=== PATIENT | female | born 1985 | race Caucasian/White ===

== ENCOUNTER 2017-02-17 12:40 | Emergency (ER) | payer MEDICAID ==
[~2017-02-17] VITALS: Ht 160 cm; Wt 77.1 kg
[2017-02-17 13:35] VITALS: BP 133/100
--- NOTE | 2017-02-17 13:36 | Urgent Treatment Center Report ---
History of Present Issue Date/Time Seen by Provider 02/17/17 1320 Visit Reason Pt arrived:Walked Presenting Problem:INJURED LEFT HAND ON A DOOR 0830 TODAY Location if Accident: Onset of symptoms date/time:/ or onset unknown for:MEDICAL HX UNKNOWN Have you (or family members/close friends) recently traveled outside the [place]? N If Yes, where/when: Have you had exposure to infectious disease within the past month? N TB? Other? Specify: Patient state that she was mad and was trying to keep from punching a door and instead she open handed smacked the door. Now having pain in her palm of her hand and on her thumb pad area States that it hurts when she moves it or tries to lift something up ALLERGIES Coded Allergies: No Known Allergies (02/17/17) Home Medications Reported Medications No Known Home Medications History Medical History General CAD? No Angina: No [place]: No Hypertension? No Hyperlipidemia? No CHF? No DVT? No PE? No COPD? No Asthma? No Anemia? No GERD? No Gastric ulcers? No GI Bleed? No Hernia? No Thyroid Problems? No Hypothyroidism? No CVA? No Seizures? No Diabetes? No Renal Insuffiency? No UTI? No Stones? No BPH? No GB Disease: No Nephritic Syndrome? No Asplenia? No Hepatitis? No Sickle Cell Disease? No Arthritis? No Migraines? No Cataracts? No Glaucoma? No MRSA? No HIV? No TB? No Anxiety? No Depression? No Cancer? No Site: N More? 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 No: respiratory distress. 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 No Results/Orders Orders Procedure Date/time Status UTC STABILIZE JOINT/AREA 02/17 1330 Active HAND-LT-3 VIEWS 02/17 1252 Active XRAY/CT/US XRAY/CT/US XRAY hand XR interpretation by reviewed by me Xray Results no fracture seen Departure Departure Time of Disposition 133 Disposition DC Home or Self Care(routine) Clinical Impression Primary Impression: Hand injury Qualifiers: Encounter type: initial encounter Laterality: left Qualified Code: S69.92XA - Unspecified injury of left wrist, hand and finger(s), initial encounter Condition STABLE Referrals Bharath MCINTOSH,Rj KOVACS MD, MONI VERGARA Patient Instructions DI for Hand Pain Additional Instructions *RICE, Rest the extremity, Ice 15-20 minutes 3-4 times daily, Compress- wear the anuj wrap as discussed as much as possible to help reduce swelling and pain, Elevate the extremity when at rest *Anuj wrap is for support and help control swelling, use it except in the shower. Be sure that is not to tight but not to loose either *Elevate when resting *Ibuprofen 600-800mg every 6-8 hours as needed for pain an inflammation. If need something more can take Tylenol in between doses of Ibuprofen to help Immediately follow up for new or worsening of symptoms, or no noticeable improvement over the next 3-5 days Discharge Counseling Counseled pt/family regarding diagnosis, test results, home care, follow up needs Prescriptions Current Visit Scripts No Known Home Medications at 1330
--- NOTE | 2017-02-17 13:36 | Urgent Treatment Center Report ---
History of Present Issue Date/Time Seen by Provider 02/17/17 1320 Visit Reason Pt arrived:Walked Presenting Problem:INJURED LEFT HAND ON A DOOR 0830 TODAY Location if Accident: Onset of symptoms date/time:/ or onset unknown for:MEDICAL HX UNKNOWN Have you (or family members/close friends) recently traveled outside the [place]? N If Yes, where/when: Have you had exposure to infectious disease within the past month? N TB? Other? Specify: Patient state that she was mad and was trying to keep from punching a door and instead she open handed smacked the door. Now having pain in her palm of her hand and on her thumb pad area States that it hurts when she moves it or tries to lift something up ALLERGIES Coded Allergies: No Known Allergies (02/17/17) Home Medications Reported Medications No Known Home Medications History Medical History General CAD? No Angina: No [place]: No Hypertension? No Hyperlipidemia? No CHF? No DVT? No PE? No COPD? No Asthma? No Anemia? No GERD? No Gastric ulcers? No GI Bleed? No Hernia? No Thyroid Problems? No Hypothyroidism? No CVA? No Seizures? No Diabetes? No Renal Insuffiency? No UTI? No Stones? No BPH? No GB Disease: No Nephritic Syndrome? No Asplenia? No Hepatitis? No Sickle Cell Disease? No Arthritis? No Migraines? No Cataracts? No Glaucoma? No MRSA? No HIV? No TB? No Anxiety? No Depression? No Cancer? No Site: N More? 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 No: respiratory distress. 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 No Results/Orders Orders Procedure Date/time Status UTC STABILIZE JOINT/AREA 02/17 1330 Active HAND-LT-3 VIEWS 02/17 1252 Active XRAY/CT/US XRAY/CT/US XRAY hand XR interpretation by reviewed by me Xray Results no fracture seen Departure Departure Time of Disposition 133 Disposition DC Home or Self Care(routine) Clinical Impression Primary Impression: Hand injury Qualifiers: Encounter type: initial encounter Laterality: left Qualified Code: S69.92XA - Unspecified injury of left wrist, hand and finger(s), initial encounter Condition STABLE Referrals Bharath MCINTOSH,Rj KOVACS MD, MONI VERGARA Patient Instructions DI for Hand Pain Additional Instructions *RICE, Rest the extremity, Ice 15-20 minutes 3-4 times daily, Compress- wear the anuj wrap as discussed as much as possible to help reduce swelling and pain, Elevate the extremity when at rest *Anuj wrap is for support and help control swelling, use it except in the shower. Be sure that is not to tight but not to loose either *Elevate when resting *Ibuprofen 600-800mg every 6-8 hours as needed for pain an inflammation. If need something more can take Tylenol in between doses of Ibuprofen to help Immediately follow up for new or worsening of symptoms, or no noticeable improvement over the next 3-5 days Discharge Counseling Counseled pt/family regarding diagnosis, test results, home care, follow up needs Prescriptions Current Visit Scripts No Known Home Medications at 1337
--- NOTE | 2017-02-17 13:48 | RADIOLOGY REPORT PS360 ---
HAND-LT-3 VIEWS HISTORY: Pain following injury PAIN ORDERING PHYSICIAN: RINA KING APRN PATIENT AGE: 32 years COMPARISON: None FINDINGS: No fracture or dislocation. No lytic or blastic change. There is normal mineralization. The joint spaces are well-preserved. No significant degenerative/arthritic changes. No erosive changes evident. IMPRESSION: Negative, no acute finding
== END 2017-02-17 13:39 | disposition home or self-care (01) ==
LOC: ER 12:40 → UTC 12:40
DX: S69.92XA Unspecified injury of left wrist, hand and finger(s), initial encounter (principal); W22.8XXA Striking against or struck by other objects, initial encounter; Y92.9 Unspecified place or not applicable; Y99.9 Unspecified external cause status; F17.210 Nicotine dependence, cigarettes, uncomplicated

== ENCOUNTER 2017-02-25 06:45 | Emergency (ER) | payer MEDICAID ==
[~2017-02-25] VITALS: Ht 160 cm; Wt 77.1 kg
--- NOTE | 2017-02-25 07:23 | Emergency Room Report ---
See Addendum History of Present Illness Time Seen by MD Antonio Presenting Problem in Triage Pt arrived:Walked Presenting Problem:C/O TWISTED RIGHT ANKLE LAST PM. 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 N Clinical Suspician of Infection? N Mental Status: 1 - Regular (Normal Baseline) Sepsis Risk:Low Sepsis Risk Have you (or family members/close friends) recently traveled outside the [place]? N If Yes, where/when: Have you had exposure to infectious disease within the past month? N TB? Other? Specify: Source patient, RN notes reviewed, family, old records Exam Limitations no limitations Comment acute eversion type injury to rt ankle with pain and swelling and dec wt bearing today Cardiac Chest Pain Chest pain indicative of cardiac No Timing/Duration this evening Severity moderate ALLERGIES Coded Allergies: No Known Allergies (02/17/17) Home Medications Reported Medications No Known Home Medications History Medical History General CAD? No Angina: No [place]: No Hypertension? No Hyperlipidemia? No CHF? No DVT? No PE? No COPD? No Asthma? No Anemia? No GERD? No Gastric ulcers? No GI Bleed? No Hernia? No Thyroid Problems? No Hypothyroidism? No CVA? No Seizures? No Diabetes? No Renal Insuffiency? No End Stage Renal Disease? No UTI? No Stones? No BPH? No GB Disease: No Nephritic Syndrome? No Asplenia? No Hepatitis? No Sickle Cell Disease? No Arthritis? No Migraines? No Cataracts? No Glaucoma? No MRSA? No HIV? No TB? No Anxiety? No Depression? No Cancer? No Site: N More? 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 Respiratory denies cough, denies shortness of breath, denies wheezing Cardiovascular denies chest pain, denies syncope Gastrointestinal denies abdominal pain, denies diarrhea, denies vomiting Genitourinary denies: dysuria, frequency, hesitancy, hematuria. Musculoskeletal see HPI, denies back pain, joint pain, joint swelling, denies neck pain Skin denies rash Psychiatric/Neurological denies headache, denies seizure Physical Exam Vital Signs Vital Signs Date Time Temp Pulse Resp B/P Pulse O2 O2 Flow FiO2 Ox Delivery Rate 02/25 0650 98.3 89 18 138/92 96 - WBC >12,000 or <4,000 or 10% bands? 2 or more SIRS Criteria Met? B/P:138/92 MAP:107 Creatinine >2.0? UA output<0.5ml/kg/hr for 2 hrs? Platelet count >100,000? Lactate >2.0mmol/1? INR >1.2 or PTT > than 60 sec? Evidence of Organ Dysfunction? Provider documented clinical suspician of infection? N Sepsis Criteria Count: 0 Sepsis Risk: Low Sepsis Risk General Appearance no apparent distress Eye Exam - bilateral eye PERRL, bilateral eye EOMI Ear, Nose, Throat normal ENT inspection Neck supple Respiratory Status No: respiratory distress. 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 No Results/Orders Orders Procedure Date/time Status STABILIZE JOINT 02/25 2306 Active ANKLE-RT-3 VIEWS 02/25 0652 Active XRAY/CT/US XRAY/CT/US XRAY ankle XR interpretation by reviewed by me Xray Results no fracture seen Departure Departure Time of Disposition 0708 Disposition DC Home or Self Care(routine) Clinical Impression Primary Impression: Right ankle sprain Qualifiers: Encounter type: initial encounter Involved ligament of ankle: unspecified ligament Qualified Code: S93.401A - Sprain of unspecified ligament of right ankle, initial encounter Condition STABLE Referrals MILAN MOLINA DPM Patient Instructions DI for Ankle Sprain Additional Instructions wt bearing as héctor and see podiatry for follow up and pcp - advil/tyenol and recheck if needed Discharge Counseling Counseled pt/family regarding diagnosis, test results, follow up needs Prescriptions Current Visit Scripts No Known Home Medications ED Critical Care Critical Care No at 0722
--- NOTE | 2017-02-25 07:23 | Emergency Room Report ---
See Addendum History of Present Illness Time Seen by MD Antonio Presenting Problem in Triage Pt arrived:Walked Presenting Problem:C/O TWISTED RIGHT ANKLE LAST PM. 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 N Clinical Suspician of Infection? N Mental Status: 1 - Regular (Normal Baseline) Sepsis Risk:Low Sepsis Risk Have you (or family members/close friends) recently traveled outside the [place]? N If Yes, where/when: Have you had exposure to infectious disease within the past month? N TB? Other? Specify: Source patient, RN notes reviewed, family, old records Exam Limitations no limitations Comment acute eversion type injury to rt ankle with pain and swelling and dec wt bearing today Cardiac Chest Pain Chest pain indicative of cardiac No Timing/Duration this evening Severity moderate ALLERGIES Coded Allergies: No Known Allergies (02/17/17) Home Medications Reported Medications No Known Home Medications History Medical History General CAD? No Angina: No [place]: No Hypertension? No Hyperlipidemia? No CHF? No DVT? No PE? No COPD? No Asthma? No Anemia? No GERD? No Gastric ulcers? No GI Bleed? No Hernia? No Thyroid Problems? No Hypothyroidism? No CVA? No Seizures? No Diabetes? No Renal Insuffiency? No End Stage Renal Disease? No UTI? No Stones? No BPH? No GB Disease: No Nephritic Syndrome? No Asplenia? No Hepatitis? No Sickle Cell Disease? No Arthritis? No Migraines? No Cataracts? No Glaucoma? No MRSA? No HIV? No TB? No Anxiety? No Depression? No Cancer? No Site: N More? 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 Respiratory denies cough, denies shortness of breath, denies wheezing Cardiovascular denies chest pain, denies syncope Gastrointestinal denies abdominal pain, denies diarrhea, denies vomiting Genitourinary denies: dysuria, frequency, hesitancy, hematuria. Musculoskeletal see HPI, denies back pain, joint pain, joint swelling, denies neck pain Skin denies rash Psychiatric/Neurological denies headache, denies seizure Physical Exam Vital Signs Vital Signs Date Time Temp Pulse Resp B/P Pulse O2 O2 Flow FiO2 Ox Delivery Rate 02/25 0650 98.3 89 18 138/92 96 - WBC >12,000 or <4,000 or 10% bands? 2 or more SIRS Criteria Met? B/P:138/92 MAP:107 Creatinine >2.0? UA output<0.5ml/kg/hr for 2 hrs? Platelet count >100,000? Lactate >2.0mmol/1? INR >1.2 or PTT > than 60 sec? Evidence of Organ Dysfunction? Provider documented clinical suspician of infection? N Sepsis Criteria Count: 0 Sepsis Risk: Low Sepsis Risk General Appearance no apparent distress Eye Exam - bilateral eye PERRL, bilateral eye EOMI Ear, Nose, Throat normal ENT inspection Neck supple Respiratory Status No: respiratory distress. 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 No Results/Orders Orders Procedure Date/time Status STABILIZE JOINT 02/25 2306 Active ANKLE-RT-3 VIEWS 02/25 0652 Active XRAY/CT/US XRAY/CT/US XRAY ankle XR interpretation by reviewed by me Xray Results no fracture seen Departure Departure Time of Disposition 0708 Disposition DC Home or Self Care(routine) Clinical Impression Primary Impression: Right ankle sprain Qualifiers: Encounter type: initial encounter Involved ligament of ankle: unspecified ligament Qualified Code: S93.401A - Sprain of unspecified ligament of right ankle, initial encounter Condition STABLE Referrals MILAN MOLINA DPM Patient Instructions DI for Ankle Sprain Additional Instructions wt bearing as héctor and see podiatry for follow up and pcp - advil/tyenol and recheck if needed Discharge Counseling Counseled pt/family regarding diagnosis, test results, follow up needs Prescriptions Current Visit Scripts No Known Home Medications ED Critical Care Critical Care No at 0722
--- NOTE | 2017-02-25 07:27 | RADIOLOGY REPORT PS360 ---
ANKLE-RT-3 VIEWS HISTORY: Pain/sprain/strain following injury TWISTED LAST NIGHT ORDERING PHYSICIAN: Pau Bueno MD PATIENT AGE: 32 years COMPARISON: None FINDINGS: Distal to the tip of the lateral malleolus there is a well-circumscribed calcific density measuring 7 mm consistent with an old avulsion injury or accessory center of ossification. There is a less well-defined calcification distal to the tip of the medial malleolus measuring 4 mm. This may represent avulsion injury age indeterminate. Correlation with patient's area of pain and tenderness is needed. No other significant anomalies are evident. IMPRESSION: 1. Age-indeterminate avulsion fracture at the medial malleolus region. 2. Old avulsion fracture versus accessory center of ossification at the lateral mild region
[2017-02-25 07:40] VITALS: BP 128/75
== END 2017-02-25 07:41 | disposition home or self-care (01) ==
LOC: ER 06:45
PROC: 2W3QX1Z Immobilization of Right Lower Leg using Splint (ICD-10-PCS; principal; 2017-02-25)
DX: S93.401A Sprain of unspecified ligament of right ankle, initial encounter (principal); F17.210 Nicotine dependence, cigarettes, uncomplicated; X50.1XXA Overexertion from prolonged static or awkward postures, initial encounter

== ENCOUNTER 2017-03-01 04:32 | Emergency (ER) | payer MEDICAID ==
[~2017-03-01] VITALS: Ht 160 cm; Wt 77.1 kg
[2017-03-01 05:47] LABS: URINE BILIRUBIN - DIPSTICK NEGATIVE (NEG); URINE BLOOD NEGATIVE (NEG)
[2017-03-01 05:48] LABS: HEMOGLOBIN 15.9 g/dL (12.2-16.2); LYMPH % 30.8 % (10-50.0)
[2017-03-01 05:49] LABS: LYMPH # 3.5 K/mm3 (0.7-4.5)
--- NOTE | 2017-03-01 05:53 | Emergency Room Report ---
History of Present Illness Time Seen by [id number] Presenting Problem in Triage Pt arrived:Walked Presenting Problem:RE-INJURED A 5 DAY OLD RIGHT ANKLE SPRAIN, ALSO COMPLAINING OF RIGHT EAR PAIN, NAUSEA AND VOMITING SINCE 314. 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 N Clinical Suspician of Infection? Y Mental Status: 1 - Regular (Normal Baseline) Sepsis Risk:Low Sepsis Risk Have you (or family members/close friends) recently traveled outside the [place]? N If Yes, where/when: Have you had exposure to infectious disease within the past month? N TB? Other? Specify: Source patient, RN notes reviewed, old records Exam Limitations no limitations Comment pt with several c/o which include ongoing rt ankle pain worse with wt bearing and has rt ear pain w/o uri sx which started this am and also has upper abd pain with nausea which started tonight and no melena or diarrhea Cardiac Chest Pain Chest pain indicative of cardiac No Timing/Duration this morning Severity moderate ALLERGIES Coded Allergies: No Known Drug Allergies (NKDA) (03/01/17) Home Medications Reported Medications No Known Home Medications History Medical History General CAD? No Angina: No ND: No Hypertension? No Hyperlipidemia? No CHF? No DVT? No PE? No COPD? No Asthma? No Anemia? No GERD? No Gastric ulcers? No GI Bleed? No Hernia? No Thyroid Problems? No Hypothyroidism? No CVA? No Seizures? No Diabetes? No Renal Insuffiency? No End Stage Renal Disease? No UTI? No Stones? No BPH? No GB Disease: No Nephritic Syndrome? No Asplenia? No Hepatitis? No Sickle Cell Disease? No Arthritis? No Migraines? No Cataracts? No Glaucoma? No MRSA? No HIV? No TB? No Anxiety? No Depression? No Cancer? No Site: N More? 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 Respiratory denies cough, denies shortness of breath, denies wheezing Cardiovascular denies chest pain, denies palpitations, denies syncope Gastrointestinal see HPI, abdominal pain, denies diarrhea, nausea, vomiting Genitourinary denies: dysuria, frequency, hesitancy, hematuria. Musculoskeletal see HPI, denies back pain, joint pain, denies joint swelling, denies neck pain Skin denies rash Psychiatric/Neurological denies headache, denies seizure Physical Exam Vital Signs Vital Signs Date Time Temp Pulse Resp B/P Pulse O2 O2 Flow FiO2 Ox Delivery Rate 03/01 0636 67 14 110/77 97 03/01 0607 97.9 68 14 109/69 97 03/01 0540 14 03/01 0507 97.9 63 14 99/67 98 03/01 0454 97.9 63 14 124/84 98 - WBC >12,000 or <4,000 or 10% bands? 2 or more SIRS Criteria Met? B/P:110/77 MAP:97 Creatinine >2.0? UA output<0.5ml/kg/hr for 2 hrs? Platelet count >100,000? Lactate >2.0mmol/1? INR >1.2 or PTT > than 60 sec? Evidence of Organ Dysfunction? Provider documented clinical suspician of infection? Y Sepsis Criteria Count: 1 Sepsis Risk: Low Sepsis Risk General Appearance no apparent distress Eye Exam - bilateral eye PERRL, bilateral eye EOMI Comment no icterus Ear, Nose, Throat abnormal TM (R), abnormal TM (L), serous changes bilat Neck supple Respiratory Status No: respiratory distress. Lung Sounds bilateral: lungs clear. Cardiovascular regular rate/rhythm, systolic murmur Peripheral Pulses Pulses normal Yes Gastrointestinal soft, no organomegaly, no pulsatile mass, guarding, no guarding , tenderness Back no CVA tenderness Extremities no calf tenderness, rt ankle w/o effusion or reddness with pain with rom Strength 4 Upper Ext (L), 4 Upper Ext (R), 4 Lower Ext (L), 4 Lower Ext (R) Neurologic alert, metal cut off saw tender II-XII nml as tested, no motor/sensory deficits Reflexes Reflexes normal No Mental status normal mood/affect Skin intact Medical Decision Making LABS/Meds/Orders Pt receiving controlled substance in ED? No Results/Orders Laboratory Tests 03/01/17 0540: Sodium 140, Potassium 4.0, Chloride 105, Carbon Dioxide 26, BUN 11, Creatinine 0.8, Estimated Creat Clear 122, Estimated GFR (MDRD) 83, Glucose 85, Calcium 8.7 , Total Bilirubin 0.6, AST 14 L, ALT 34, Alkaline Phosphatase 79, Total Protein 7.4, Albumin 4.0, Globulin 3.4 H, Albumin/Globulin Ratio 1.2, Amylase 55, WBC 11.4 H, RBC 5.11, Hgb 15.9, Hct 47.9 H, MCV 93.7, RDW 14.2, Plt Count 265, Gran % 64.3, Gran # 7.3, Lymphocytes % 30.8, Monocytes % 4.9, Lymphocytes # 3.5, Monocytes # 0.6, PUBS MCHC 33.2, MCH 31.1, Urine Color YELLOW, Urine Appearance CLEAR, Urine pH 6.0, Ur Specific [place] >= 1.030, Urine Protein TRACE H, Urine Ketones NEGATIVE, Urine Blood NEGATIVE, Urine Nitrate NEGATIVE, Urine Bilirubin NEGATIVE, Urine Urobilinogen 0.2, Ur Leukocyte Esterase NEGATIVE, Urine RBC NONE , Urine WBC 3-5, Ur Squamous Epith Cells 3-5, Urine Bacteria 3+, Urine Mucus 3+, Urine Glucose NEGATIVE Current Medication Orders Sig/David Start time Last Medication Dose Route Stop Time Status Admin Ondansetron HCl 0 .STK-MED ONE 03/01 521 DC .ROUTE Sodium Chloride 1,000 ML .STK-MED ONE 03/01 521 DC IV Ketorolac 0 .STK-MED ONE 03/01 0520 DC Tromethamine .ROUTE Ketorolac 30 MG ONCE ONE 03/01 515 DC 03/01 Tromethamine IV 03/01 0516 0540 Ondansetron HCl 4 MG ONCE ONE 03/01 515 DC 03/01 IV 03/01 0516 0530 Sodium Chloride 1,000 ML .Q1H1M 03/01 515 DC 03/01 IV 03/01 0615 0540 Sodium Chloride 10 ML PRN PRN 03/01 05 AC IV 03/02 0514 Sodium Chloride 10 ML PRN PRN 03/01 0515 AC IV 03/02 0515 Orders Procedure Date/time Status DIET-NOTHING BY MOUTH 03/[address] ABD & PELVIS W/O CONTRAST 03/01 0601 Active CULTURE, URINE 03/01 0540 Active IV SALINE LOCK 03/[address] ABD/PELVIS REQ 03/01 0513 Complete URINE 03/01 0513 Complete URINALYSIS/COMPLETE 03/01 05 Complete CBC WITH AUTO DIFF 03/01 512 Complete CHEM 12 PROFILE 03/01 512 Complete AMYLASE 03/01 512 Complete XRAY/CT/US XRAY/CT/US XRAY chest, ankle XR interpretation by reviewed by me Xray Results normal/NAD Departure Departure Time of Disposition 06 Disposition DC Home or Self Care(routine) Clinical Impression Primary Impression: Abdominal pain Qualifiers: Abdominal location: unspecified location Qualified Code: R10.9 - Unspecified abdominal pain Secondary Impressions: Ankle pain, right Qualifiers: Chronicity: unspecified Qualified Code: M25.571 - Pain in right ankle and joints of right foot Serous otitis media Qualifiers: Chronicity: acute Laterality: bilateral Recurrence: not specified as recurrent Qualified Code: H65.03 - Acute serous otitis media, bilateral Condition STABLE Referrals MILAN MOLINA DPM Patient Instructions DI for Ankle Pain Additional Instructions see pcp for follow up and also podiatry Discharge Counseling Counseled pt/family regarding diagnosis, test results, medications/RX, follow up needs Prescriptions Current Visit Scripts Prednisone (Prednisone 20MG) 20 MG PO BID #10 TAB ED Critical Care Critical Care No at 0702
--- NOTE | 2017-03-01 06:50 | RADIOLOGY REPORT PS360 ---
CHEST(2 VIEWS-NOT PORTABLE) HISTORY: Chest pain RE-INJURED FROM 5 DAYS PRIOR ORDERING PHYSICIAN: Pau Bueno MD PATIENT AGE: 32 years COMPARISON: None available FINDINGS: The cardiomediastinal silhouette and pulmonary vascularity are within normal limits. The lungs are clear without infiltrates, suspicious nodules, or pleural effusions. No acute bony abnormalities. IMPRESSION: Negative chest, no acute finding
--- NOTE | 2017-03-01 06:51 | RADIOLOGY REPORT PS360 ---
ANKLE-RT-3 VIEWS HISTORY: Pain following injury RE-INJURED FROM 5 DAYS PRIOR ORDERING PHYSICIAN: Pau Bueno MD PATIENT AGE: 32 years COMPARISON: 02/25/2017 FINDINGS: Calcific densities are present at the tip of the lateral and medial malleoli consistent with avulsion injuries which are age-indeterminate. Please correlate clinically. No significant change with no acute finding compared to the previous exam. IMPRESSION: Avulsion injuries of both medial and lateral malleoli may very well be old. Please correlate clinically.
[2017-03-01] MEDS ORDERED: PREDNISONE 20MG20 MG PO (07:02)
[2017-03-01 07:20] VITALS: BP 110/77
--- NOTE | 2017-03-01 09:26 | RADIOLOGY REPORT PS360 ---
CT ABD PELVIS W/O CONTRAST CLINICAL INDICATION: Nausea and abdominal pain ORDERING PHYSICIAN: Pau Bueno MD PATIENT AGE: 32 years COMPARISON: None TECHNIQUE: Axial images obtained with sagittal and coronal reformats. PROCEDURE: Oral Contrast: None IV Contrast: None . FINDINGS: There are mild atelectatic changes in the right lung base. There is been prior cholecystectomy. No focal liver lesion. The spleen, adrenal glands, pancreas are unremarkable. No renal calculi or hydronephrosis. No ureteral calculi. There is mild thickening of the urinary bladder which may be due to nondistention versus cystitis. No evidence of appendicitis, diverticulitis, or intestinal obstruction or free air. Scattered small lymph nodes are present in the abdomen nonspecific. No acute bony anomalies. IMPRESSION: 1. Mild thickening of the urinary bladder versus cystitis. 2. Otherwise negative CT abdomen pelvis without contrast
== END 2017-03-01 07:00 | disposition home or self-care (01) ==
LOC: ER 04:32
PROVIDERS: Emergency Medicine
DX: R10.10 Upper abdominal pain, unspecified (principal); M25.571 Pain in right ankle and joints of right foot; H65.03 Acute serous otitis media, bilateral; F17.210 Nicotine dependence, cigarettes, uncomplicated
CPT/HCPCS: J2405